=== PATIENT | female | born 1930 | race Caucasian/White ===

== ENCOUNTER 2016-08-17 19:44 | Emergency (ER) | payer MEDICARE, BC ==
[~2016-08-17] VITALS: Ht 165.1 cm; Wt 48.6 kg
[~2016-08-17 19:44] MED LIST: ALBUTEROL1.25 MG/3 IH; ALMACONE 360 M360 ML PO; AMBIEN 10MG10 MG PO; AMBIEN 5MG TABLE5 MG PO; ANTACID 225 MG360 M1 PO; ARIMIDEX1 MG PO; ASPI325T6 PO; BENADRYL ALLERG25 M1 PO; BENADRYL25 M2; BENADRYL25 M2 PO; BIAXIN FILMTAB500 MG PO; BUFFERED ASPIR325 M1 PO; CARDIZEM CD 12120 MG PO; CLEOCIN HCL300 MG PO; COUMADIN 22.5 MG/TAB PO; COUMADIN 3MG3 MG/TAB; COUMADIN 3MG3 MG/TAB PO; COUMADIN 5MG5 MG/TAB; COUMADIN4 MG PO; CYMBALTA 30MG30 MG PO; DARVOCET-N-101 UDTAB PO; DESYREL DIVIDO150 M1 PO; DITROPAN 5MG TAB5 MG PO; DOXYCYCLINE 10100 MG PO; DULCOLAX10 MG RC; ENSURE1 PDR PO; EYE DROPS 0.05%15 ML OP; EYE OINTMENT OU; GAS-X80 MG PO; GENTLE LAXATIVE10 MG RC; INDERAL 10MG10 MG; INDERAL 10MG10 MG PO; IPRATROPIUM BROM3 M1 IH; KEPPRA 500MG500 MG PO; KLOR-CON 1010 MEQ PO; LASIX 20MG TABL20 MG PO; LEVAQUIN 5500 MG/TA1 PO; LIPITOR 10MG10 MG PO; LOPRESSOR 225 MG/TAB PO; MIRALAX PA17 GM/Dose PO; MUCINEX 60600 MG/TA1 PO; MUCINEX1200 MG; MULTIPLE VITAMI1 CAP PO; MYLANTA 150 ML150 M1 PO; NORCO 325 MG-51 TAB PO; PHAZYME PO; SENNA8.6 MG PO; SENOKOT8.6 MG PO; TAMBOCOR 1100 MG/TAB PO; TAMBOCOR50 MG; TAMBOCOR50 MG PO; THERATEARS 15 M15 ML OU; TOPROL XL 25MG25 MG PO; TOPROL XL25 MG PO; TRAZODONE PO; TYLENOL 325MG325 MG PO; UNABLE; VISINE ADVANCED15 ML OP; XANAX .25M0.25 MG/TA PO; XANAX 0.5MG0.5 MG PO; XANAX0.5 MG PO; XARELTO10 MG PO; ZANTAC 150MG T150 MG PO; ZOFRAN 4MG T4 MG/TAB PO; [UNRECOGNIZED DRUG - OTHER]
[2016-08-17 19:53] VITALS: BP 130/49; TEMP 97.2
[2016-08-17] MEDS ORDERED: INDERAL 10MG10 MG PO (21:13)
[2016-08-17 23:27] VITALS: PULSE 63
== END 2016-08-17 23:29 | disposition home or self-care (01) ==
LOC: COL.ER 19:44
DX: S09.90XA Unspecified injury of head, initial encounter (principal); S70.01XA Contusion of right hip, initial encounter; W18.2XXA Fall in (into) shower or empty bathtub, initial encounter; Y93.E1 Activity, personal bathing and showering; Y92.121 Bathroom in nursing home as the place of occurrence of the external cause; M54.2 Cervicalgia; I48.91 Unspecified atrial fibrillation; R40.2362 Coma scale, best motor response, obeys commands, at arrival to emergency department; R40.2142 Coma scale, eyes open, spontaneous, at arrival to emergency department; R40.2252 Coma scale, best verbal response, oriented, at arrival to emergency department; I69.354 Hemiplegia and hemiparesis following cerebral infarction affecting left non-dominant side

== ENCOUNTER → 2017-08-02 | Outpatient (CLI) | payer MEDICARE, BC ==
[2017-08-02 01:06] LABS: COLLECTION METHOD CLEAN CATCH
[2017-08-02 01:13] LABS: PH 6 (5-8); SQUAMOUS EPITHELIAL None Seen /hpf; URINE APPEARANCE Turbid; URINE BACTERIA None Seen /hpf; URINE BILIRUBIN Negative (NEGATIVE); URINE BLOOD 1+ (NEGATIVE); URINE COLOR Amber; URINE GLUCOSE Negative (NEGATIVE); URINE KETONE Negative (NEGATIVE); URINE LEUKOCYTE ESTERASE 3+ (NEGATIVE); URINE NITRATE Negative (NEGATIVE); URINE PROTEIN(semi-quant) 2+ (NEGATIVE); URINE RBC None Seen /hpf
== END ==
LOC: ZCOL.LAB 00:33
PROVIDERS: Internal Medicine
DX: R39.9 Unspecified symptoms and signs involving the genitourinary system (principal)

== ENCOUNTER → 2017-10-16 | Outpatient (CLI) | payer MEDICARE, BC ==
[2017-10-16 17:44] LABS: COLLECTION METHOD CATHETER
[2017-10-16 18:06] LABS: PH 5 (5-8); SQUAMOUS EPITHELIAL None Seen /hpf; URINE APPEARANCE Turbid; URINE BACTERIA None Seen /hpf; URINE BILIRUBIN Negative (NEGATIVE); URINE BLOOD Negative (NEGATIVE); URINE COLOR Yellow; URINE GLUCOSE Negative (NEGATIVE); URINE KETONE Negative (NEGATIVE); URINE LEUKOCYTE ESTERASE 2+ (NEGATIVE); URINE NITRATE Negative (NEGATIVE); URINE PROTEIN(semi-quant) 2+ (NEGATIVE)
== END ==
LOC: ZCOL.LAB 17:37
PROVIDERS: Internal Medicine
DX: Z01.89 Encounter for other specified special examinations (principal)

== ENCOUNTER 2018-11-18 20:54 | Emergency (ER) | payer MEDICARE, BC ==
[2018-11-18 20:55] VITALS: TEMP 97.5
[2018-11-18] MEDS ORDERED: MIRALAX PA17 GM/Dose PO (22:21)
[2018-11-18] MEDS ORDERED: XANAX .25M0.25 MG/TA PO (22:21)
[2018-11-18] MEDS ORDERED: TYLENOL 325MG325 MG PO (22:23)
[2018-11-18] MEDS ORDERED: CYMBALTA 30MG30 MG PO (22:24)
[2018-11-18] MEDS ORDERED: GAS RELIEF 8080 MG PO (22:24)
[2018-11-18] MEDS ORDERED: ASPIRIN 32325 MG/TAB PO (22:25)
[2018-11-18] MEDS ORDERED: ARIMIDEX1 MG PO (22:25)
[2018-11-18] MEDS ORDERED: NORCO 325 MG-51 TAB PO (22:25)
[2018-11-18] MEDS ORDERED: AMPHOJEL SUSPENS1 ML PO (22:27)
[2018-11-18] MEDS ORDERED: KEPPRA 500MG500 MG PO (22:27)
[2018-11-18] MEDS ORDERED: KLOR-CON 1010 MEQ PO (22:28)
[2018-11-18] MEDS ORDERED: ZOFRAN 4MG T4 MG/TAB PO (22:28)
[2018-11-18] MEDS ORDERED: ZANTAC 150MG T150 MG PO (22:28)
[2018-11-18] MEDS ORDERED: VESICARE 5MG5 MG PO (22:29)
[2018-11-18] MEDS ORDERED: MUCINEX 60600 MG/TA1 PO (22:29)
[2018-11-18] MEDS ORDERED: INDERAL 10MG10 MG PO (22:29)
[2018-11-18] MEDS ORDERED: LIPITOR 10MG10 MG PO (22:30)
[2018-11-18] MEDS ORDERED: VISINE A.C. 0.015 ML (22:30)
[2018-11-18] MEDS ORDERED: TOPROL XL 25MG25 MG PO (22:30)
[2018-11-18] MEDS ORDERED: CARDIZEM CD 24240 MG PO (22:30)
[2018-11-18] MEDS ORDERED: HIPREX PO (22:31)
[2018-11-18 22:43] VITALS: BP 114/80; PULSE 53
== END 2018-11-18 23:00 | disposition home or self-care (01) ==
LOC: COL.ER 20:54
DX: S01.81XA Laceration without foreign body of other part of head, initial encounter (principal); M54.2 Cervicalgia; G89.29 Other chronic pain; Z86.73 Personal history of transient ischemic attack (TIA), and cerebral infarction without residual deficits; F03.90 Unspecified dementia, unspecified severity, without behavioral disturbance, psychotic disturbance, mood disturbance, and anxiety; W19.XXXA Unspecified fall, initial encounter; Y92.009 Unspecified place in unspecified non-institutional (private) residence as the place of occurrence of the external cause

== ENCOUNTER 2019-01-24 17:30 | Inpatient (IN) | payer MEDICARE, BC ==
[~2019-01-24] VITALS: Wt 53.3 kg
[~2019-01-24 17:30] MED LIST changes: +AMPHOJEL SUSPENS1 ML PO; +ASPIRIN 32325 MG/TAB PO; +CARDIZEM CD 24240 MG PO; +GAS RELIEF 8080 MG PO; +HIPREX PO; +VESICARE 5MG5 MG PO; +VISINE A.C. 0.015 ML
[2019-01-24 18:09] LABS: BASO # 0.1 (0.0-0.2); BASO % 1.3 % (0.0-2.0); EOS # 0.3 (0.0-0.7); EOS % 3.6 % (0-4.0); GRAN # 6.2 (1.4-6.5); GRAN % 65.6 % (42.2-75.2); HEMATOCRIT 44.8 % (37.0-47.0); HEMOGLOBIN 14.6 g/dl (12.5-16.0); LYMPH # 2.1 (1.2-3.4); LYMPH % 22.8 % (20.0-51.0); MEAN CELL VOLUME 100 fl (80.0-100.0); MEAN CORPUSCULAR HEMOGLOBIN 33 pg (27.0-31.0); MEAN CORPUSCULAR HGB CONC 33 g/dl (33.0-37.0); MEAN PLATELET VOLUME 10.3 fl (7.4-10.4); MONO # 0.6 (0.1-0.6); MONO % 6.3 % (1.7-9.3); PLATELET COUNT 163 K/mm3 (130-400); RED BLOOD COUNT 4.49 M/mm3 (4.10-5.30); REDCELL DISTRIBUTION WIDTH-CV 13.2 % (11.5-14.5)
[2019-01-24 18:14] LABS: COLLECTION METHOD CATHETER
[2019-01-24 18:16] LABS: PROTHROMBIN TIME 11.8 SECONDS (9.7-12.8)
[2019-01-24 18:19] LABS: PARTIAL THROMBOPLASTIN TIME 21.7 SECONDS (26.0-37.0)
[2019-01-24 18:20] LABS: ALANINE AMINOTRANSFERASE 17 U/L (9-52); ALBUMIN 3.8 gm/dL (3.5-5.0); ALKALINE PHOSPHATASE 121 U/L (50-136); ANION GAP 11 mmol/L (7-16); AST,SGOT 22 U/L (15-37); BILIRUBIN,TOTAL 0.7 mg/dL (0.0-1.0); BLOOD UREA NITROGEN 21 mg/dL (7-17); CALCIUM 9.5 mg/dL (8.4-10.2); CARBON DIOXIDE 24 mmol/L (22-30); CHLORIDE 106 mmol/L (98-107); CREATININE, serum 0.69 (0.52-1.25); GLUCOSE 104 mg/dL (74-106); POTASSIUM 4.5 mmol/L (3.4-5.0); SODIUM 141 mmol/L (137-145)
[2019-01-24 18:21] LABS: PH 5 (5-8); SQUAMOUS EPITHELIAL 0-2 /hpf; URINE APPEARANCE Hazy; URINE BACTERIA Rare /hpf; URINE BILIRUBIN Negative (NEGATIVE); URINE BLOOD Negative (NEGATIVE); URINE COLOR Yellow; URINE GLUCOSE Negative (NEGATIVE); URINE KETONE Trace (NEGATIVE); URINE LEUKOCYTE ESTERASE 1+ (NEGATIVE); URINE NITRATE Negative (NEGATIVE); URINE PROTEIN(semi-quant) 1+ (NEGATIVE); URINE RBC 0-2 /hpf; URINE UROBILINOGEN Negative (NEGATIVE)
[2019-01-24 18:34] LABS: TROPONIN-I < 0.012 ng/mL (0.000-0.035)
[2019-01-24 21:42] VITALS: BP 106/84; PULSE 114; TEMP 98
[2019-01-24 23:00] VITALS: BP 106/82; PULSE 125; TEMP 97.4
[2019-01-24 23:01] LABS: HEMOGLOBIN A1C 5.1 %; MAGNESIUM 1.9 mg/dL (1.6-2.3); PHOSPHOROUS 3.7 mg/dL (2.5-4.5)
[2019-01-24 23:07] LABS: LACTIC ACID 1.5 mmol/L (0.4-2.0)
[2019-01-24 23:29] VITALS: BP 106/84; PULSE 114; TEMP 98
[2019-01-24 23:55] LABS: TROPONIN-I < 0.012 ng/mL (0.000-0.035)
[2019-01-24 23:57] VITALS: O2SAT 95; O2SAT 96
[2019-01-24 23:58] VITALS: O2SAT 96
[2019-01-24 23:59] VITALS: O2SAT 95
[2019-01-25] VITALS (704 sets, daily range): BP systolic 99–111; BP diastolic 62–83; PULSE 101–129; TEMP 97.4–98.8; O2SAT 52–100
[2019-01-25] MEDS ORDERED: MYLANTA 150 ML150 M1 PO (02:40)
[2019-01-25] MEDS ORDERED: XANAX .25M0.25 MG/TA PO (02:42)
[2019-01-25] MEDS ORDERED: DETROL LA4 PO (02:47)
[2019-01-25 05:44] LABS: BASO # 0.1 (0.0-0.2); BASO % 1.1 % (0.0-2.0); EOS # 0.2 (0.0-0.7); EOS % 2.4 % (0-4.0); GRAN # 6.2 (1.4-6.5); GRAN % 68.6 % (42.2-75.2); HEMATOCRIT 40.9 % (37.0-47.0); HEMOGLOBIN 13.5 g/dl (12.5-16.0); LYMPH # 1.8 (1.2-3.4); LYMPH % 19.7 % (20.0-51.0); MEAN CELL VOLUME 99 fl (80.0-100.0); MEAN CORPUSCULAR HEMOGLOBIN 33 pg (27.0-31.0); MEAN CORPUSCULAR HGB CONC 33 g/dl (33.0-37.0); MONO # 0.7 (0.1-0.6); MONO % 7.9 % (1.7-9.3); PLATELET COUNT 144 K/mm3 (130-400); RED BLOOD COUNT 4.15 M/mm3 (4.10-5.30); REDCELL DISTRIBUTION WIDTH-CV 13.2 % (11.5-14.5)
[2019-01-25 05:51] LABS: ALBUMIN 3.1 gm/dL (3.5-5.0); BILIRUBIN,TOTAL 0.7 mg/dL (0.0-1.0); CALCIUM 8.8 mg/dL (8.4-10.2); CHOLESTEROL RISK RATIO 4.2; CREATININE, serum 0.57 (0.52-1.25); TOTAL PROTEIN 5.9 gm/dL (6.4-8.2)
[2019-01-26] VITALS (438 sets, daily range): BP systolic 101–121; BP diastolic 67–88; PULSE 97–115; TEMP 97.9–98.5; O2SAT 66–100
[2019-01-26 07:06] LABS: BASO # 0.1 (0.0-0.2); BASO % 1.1 % (0.0-2.0); EOS # 0.2 (0.0-0.7); EOS % 2.4 % (0-4.0); GRAN # 5.8 (1.4-6.5); GRAN % 70.7 % (42.2-75.2); HEMOGLOBIN 11.9 g/dl (12.5-16.0); LYMPH # 1.4 (1.2-3.4); LYMPH % 17.5 % (20.0-51.0); MEAN CELL VOLUME 100 fl (80.0-100.0); MEAN CORPUSCULAR HEMOGLOBIN 33 pg (27.0-31.0); MEAN CORPUSCULAR HGB CONC 33 g/dl (33.0-37.0); MEAN PLATELET VOLUME 10.9 fl (7.4-10.4); MONO # 0.7 (0.1-0.6); MONO % 7.9 % (1.7-9.3); PLATELET COUNT 131 K/mm3 (130-400); RED BLOOD COUNT 3.63 M/mm3 (4.10-5.30); REDCELL DISTRIBUTION WIDTH-CV 13.2 % (11.5-14.5)
[2019-01-26 07:11] LABS: HEMATOCRIT 36.2 % (37.0-47.0)
[2019-01-26 07:25] LABS: CALCIUM 8.5 mg/dL (8.4-10.2); CREATININE, serum 0.53 (0.52-1.25); POTASSIUM 3.6 mmol/L (3.4-5.0)
[2019-01-27 00:06] VITALS: BP 132/85; PULSE 76; TEMP 97.6
[2019-01-27 07:07] LABS: BASO # 0.1 (0.0-0.2); BASO % 0.9 % (0.0-2.0); EOS # 0.1 (0.0-0.7); EOS % 1.3 % (0-4.0); GRAN # 6.7 (1.4-6.5); GRAN % 77.5 % (42.2-75.2); HEMATOCRIT 38.3 % (37.0-47.0); HEMOGLOBIN 12.3 g/dl (12.5-16.0); LYMPH # 1.2 (1.2-3.4); LYMPH % 13.5 % (20.0-51.0); MEAN CELL VOLUME 101 fl (80.0-100.0); MEAN CORPUSCULAR HEMOGLOBIN 33 pg (27.0-31.0); MEAN CORPUSCULAR HGB CONC 32 g/dl (33.0-37.0); MONO # 0.5 (0.1-0.6); MONO % 6.3 % (1.7-9.3); PLATELET COUNT 152 K/mm3 (130-400); RED BLOOD COUNT 3.79 M/mm3 (4.10-5.30); REDCELL DISTRIBUTION WIDTH-CV 13.3 % (11.5-14.5)
[2019-01-27 07:20] LABS: CALCIUM 8.5 mg/dL (8.4-10.2); CREATININE, serum 0.5 (0.52-1.25); MAGNESIUM 1.9 mg/dL (1.6-2.3); POTASSIUM 3.5 mmol/L (3.4-5.0)
[2019-01-27 07:41] VITALS: BP 116/74; PULSE 66; TEMP 98.1
[2019-01-27 11:30] VITALS: BP 116/79; PULSE 104; TEMP 97.8
[2019-01-27 15:29] VITALS: BP 105/78; PULSE 106; TEMP 97.8
[2019-01-27 19:38] VITALS: BP 120/94; PULSE 115; TEMP 98.2
[2019-01-27 23:20] VITALS: BP 109/79; PULSE 95; TEMP 97.6
[2019-01-28] VITALS (7 sets, daily range): BP systolic 105–124; BP diastolic 62–85; PULSE 84–111; TEMP 97.4–98.7
[2019-01-28 11:18] LABS: BASO # 0.1 (0.0-0.2); BASO % 1.1 % (0.0-2.0); EOS # 0.5 (0.0-0.7); EOS % 5.7 % (0-4.0); GRAN # 5.7 (1.4-6.5); GRAN % 66.5 % (42.2-75.2); HEMATOCRIT 43.4 % (37.0-47.0); HEMOGLOBIN 13.9 g/dl (12.5-16.0); LYMPH # 1.7 (1.2-3.4); LYMPH % 20.1 % (20.0-51.0); MEAN CELL VOLUME 101 fl (80.0-100.0); MEAN CORPUSCULAR HEMOGLOBIN 32 pg (27.0-31.0); MEAN CORPUSCULAR HGB CONC 32 g/dl (33.0-37.0); MEAN PLATELET VOLUME 10.6 fl (7.4-10.4); MONO # 0.5 (0.1-0.6); MONO % 6.2 % (1.7-9.3); PLATELET COUNT 158 K/mm3 (130-400); RED BLOOD COUNT 4.31 M/mm3 (4.10-5.30); REDCELL DISTRIBUTION WIDTH-CV 13.3 % (11.5-14.5)
[2019-01-28 11:24] LABS: CALCIUM 8.8 mg/dL (8.4-10.2); CREATININE, serum 0.47 (0.52-1.25); POTASSIUM 3.8 mmol/L (3.4-5.0)
[2019-01-28 13:16] LABS: INR 1.1 (0.8-3.0); PROTHROMBIN TIME 13.1 SECONDS (9.7-12.8)
[2019-01-28 15:14] LABS: PLEURAL FLUID RBC 0 /mm3 (0-0); PLEURAL FLUID WBC 129 /mm3
[2019-01-28 15:16] LABS: PLEURAL FLUID APPEARANCE CLEAR; PLEURAL FLUID COLOR YELLOW
[2019-01-28 15:25] LABS: GLUCOSE,PLEURAL FLUID 96 mg/dL; TOTAL PROTEIN,PLEURAL FLUID 2.3 gm/dL
[2019-01-29 03:52] VITALS: BP 100/50; PULSE 88; TEMP 98
[2019-01-29 05:44] VITALS: BP 107/63
[2019-01-29 07:59] VITALS: BP 125/85; PULSE 100; TEMP 97.6
[2019-01-29] MEDS ORDERED: CARDIZEM 60MG T60 MG PO ×3 (09:02→15:44)
[2019-01-29] MEDS ORDERED: LOPRESSOR 225 MG/TAB PO (09:02)
[2019-01-29 10:11] LABS: BASO # 0.1 (0.0-0.2); BASO % 1.1 % (0.0-2.0); EOS # 0.5 (0.0-0.7); EOS % 5.4 % (0-4.0); GRAN % 67.6 % (42.2-75.2); HEMATOCRIT 42.4 % (37.0-47.0); HEMOGLOBIN 13.9 g/dl (12.5-16.0); LYMPH # 1.7 (1.2-3.4); LYMPH % 18.8 % (20.0-51.0); MEAN CELL VOLUME 101 fl (80.0-100.0); MEAN CORPUSCULAR HEMOGLOBIN 33 pg (27.0-31.0); MEAN CORPUSCULAR HGB CONC 33 g/dl (33.0-37.0); MEAN PLATELET VOLUME 10.4 fl (7.4-10.4); MONO # 0.6 (0.1-0.6); MONO % 6.8 % (1.7-9.3); PLATELET COUNT 150 K/mm3 (130-400); REDCELL DISTRIBUTION WIDTH-CV 13.3 % (11.5-14.5)
[2019-01-29 10:23] LABS: CALCIUM 8.8 mg/dL (8.4-10.2); CREATININE, serum 0.47 (0.52-1.25); POTASSIUM 3.9 mmol/L (3.4-5.0)
== END 2019-01-29 12:51 | disposition home health service (06) | DRG 65 ==
LOC: COL.ER 17:30 → ICU 20:36 → MEDICAL 01-26 14:01
PROVIDERS: Emergency Medicine; Nurse Practitioner Family; Physician Assistant; ADMIT Internal Medicine
PROC: 0W993ZZ Drainage of Right Pleural Cavity, Percutaneous Approach (ICD-10-PCS; principal; 2019-01-28)
DX: I63.9 Cerebral infarction, unspecified (principal); I69.254 Hemiplegia and hemiparesis following other nontraumatic intracranial hemorrhage affecting left non-dominant side; N39.0 Urinary tract infection, site not specified; J90 Pleural effusion, not elsewhere classified; E44.0 Moderate protein-calorie malnutrition; Z68.1 Body mass index [BMI] 19.9 or less, adult; I10 Essential (primary) hypertension; R47.01 Aphasia; I48.2 Chronic atrial fibrillation; G40.909 Epilepsy, unspecified, not intractable, without status epilepticus; R53.81 Other malaise; Z66 Do not resuscitate; M48.061 Spinal stenosis, lumbar region without neurogenic claudication; M62.422 Contracture of muscle, left upper arm; H35.30 Unspecified macular degeneration; I34.0 Nonrheumatic mitral (valve) insufficiency; H54.8 Legal blindness, as defined in USA; F32.9 Major depressive disorder, single episode, unspecified; Z90.710 Acquired absence of both cervix and uterus; Z92.3 Personal history of irradiation; Z85.3 Personal history of malignant neoplasm of breast; Z91.81 History of falling; Z96.641 Presence of right artificial hip joint; Z88.0 Allergy status to penicillin; Z88.1 Allergy status to other antibiotic agents; Z88.2 Allergy status to sulfonamides; Z88.5 Allergy status to narcotic agent
CPT/HCPCS: 99223-AI; 99232-AI; 99233-AI; 99239; A4216; A9585; J0456; J0692; J0696; J1953; J2405; J7030; J7050; Q9967

== ENCOUNTER 2019-02-01 08:43 | Observation (INO) | payer MEDICARE, BC ==
[~2019-02-01] VITALS: Ht 165.1 cm; Wt 50.0 kg
[~2019-02-01 08:43] MED LIST changes: +CARDIZEM 60MG T60 MG PO; +DETROL LA4 PO
[2019-02-01 09:37] LABS: BASO # 0.1 (0.0-0.2); EOS # 0.5 (0.0-0.7); EOS % 5.8 % (0-4.0); GRAN # 6.6 (1.4-6.5); GRAN % 71.9 % (42.2-75.2); HEMATOCRIT 43.2 % (37.0-47.0); HEMOGLOBIN 14.1 g/dl (12.5-16.0); LYMPH # 1.4 (1.2-3.4); LYMPH % 14.9 % (20.0-51.0); MEAN CELL VOLUME 99 fl (80.0-100.0); MEAN CORPUSCULAR HEMOGLOBIN 32 pg (27.0-31.0); MEAN CORPUSCULAR HGB CONC 33 g/dl (33.0-37.0); MEAN PLATELET VOLUME 10.6 fl (7.4-10.4); MONO # 0.6 (0.1-0.6); PLATELET COUNT 180 K/mm3 (130-400); RED BLOOD COUNT 4.35 M/mm3 (4.10-5.30); REDCELL DISTRIBUTION WIDTH-CV 13.2 % (11.5-14.5)
[2019-02-01 09:39] LABS: INR 1.1 (0.8-3.0); PROTHROMBIN TIME 13.2 SECONDS (9.7-12.8)
[2019-02-01 09:44] LABS: ALBUMIN 3.3 gm/dL (3.5-5.0); BILIRUBIN,TOTAL 0.8 mg/dL (0.0-1.0); CALCIUM 8.9 mg/dL (8.4-10.2); CREATININE, serum 0.56 (0.52-1.25); TOTAL PROTEIN 6.1 gm/dL (6.4-8.2)
[2019-02-01 10:11] LABS: COLLECTION METHOD CATHETER
--- NOTE | 2019-02-01 10:46 | NUR ---
JOHN met with patient and to discuss placement. Patient was recently in the hospital and had screened for SNF. She decided she would rather go back to [facility] where she receives full care. Patient is wheelchair bound and also gets home health [facility]. JOHN called richelle at [facility] who reports they are meeting her needs and can continue to do so. She reports they provide all of her care needed. JOHN spoke with patient who does not want to go skilled and her feels she gets the care she needs at [facility]. JOHN informed nurse that patient would like to return to [place].
[2019-02-01 11:02] LABS: PH 5 (5-8); URINE APPEARANCE Cloudy; URINE BACTERIA Moderate /hpf; URINE BILIRUBIN Negative (NEGATIVE); URINE BLOOD 1+ (NEGATIVE); URINE COLOR Yellow; URINE GLUCOSE Negative (NEGATIVE); URINE KETONE Negative (NEGATIVE); URINE LEUKOCYTE ESTERASE 2+ (NEGATIVE); URINE NITRATE Negative (NEGATIVE); URINE PROTEIN(semi-quant) Negative (NEGATIVE); URINE UROBILINOGEN Negative (NEGATIVE)
[2019-02-01] MEDS ORDERED: CARDIZEM 60MG T60 MG PO (12:31)
[2019-02-01 15:15] VITALS: BP 102/62; PULSE 105; TEMP 98.5
--- NOTE | 2019-02-01 16:25 | NUR ---
PT BACK TO ROOM AT THIS TIME. CT COMPLETE, VENKATA PAGAN SCHEDULED FOR TOMMORROW.
[2019-02-01 16:57] VITALS: BP 123/81; PULSE 108; TEMP 98.7
--- NOTE | 2019-02-01 18:57 | NUR ---
report to Kandy MANCINI
[2019-02-01 19:59] VITALS: BP 118/79; PULSE 106; TEMP 98.4
--- NOTE | 2019-02-01 20:30 | NUR ---
Initial shift assessment done- alert/partially oriented- concerned about her medications-reassurance given,, tele on, VSS, bed alarm on-
[2019-02-01 23:39] VITALS: BP 116/66; PULSE 91; TEMP 98
[2019-02-02 04:55] VITALS: BP 103/64; PULSE 90; TEMP 99.1
--- NOTE | 2019-02-02 05:01 | NUR ---
Quiet night- sleeping well, VSS, Tele on-afib rate 80-110, SCD's on at this time, EEG ordered for today, SEizure Precautions on at this time, Incontinent of urine during the night- care given as needed
[2019-02-02 06:54] VITALS: BP 100/66; PULSE 86; TEMP 98.4
[2019-02-02 07:19] LABS: BASO # 0.1 (0.0-0.2); BASO % 0.9 % (0.0-2.0); EOS # 0.5 (0.0-0.7); EOS % 6.2 % (0-4.0); GRAN # 5.4 (1.4-6.5); GRAN % 66.4 % (42.2-75.2); LYMPH # 1.5 (1.2-3.4); LYMPH % 18.2 % (20.0-51.0); MEAN CELL VOLUME 100 fl (80.0-100.0); MEAN CORPUSCULAR HEMOGLOBIN 33 pg (27.0-31.0); MEAN CORPUSCULAR HGB CONC 33 g/dl (33.0-37.0); MEAN PLATELET VOLUME 10.6 fl (7.4-10.4); MONO # 0.6 (0.1-0.6); MONO % 7.8 % (1.7-9.3); PLATELET COUNT 166 K/mm3 (130-400); REDCELL DISTRIBUTION WIDTH-CV 13.2 % (11.5-14.5)
[2019-02-02 07:29] LABS: CALCIUM 8.5 mg/dL (8.4-10.2); CREATININE, serum 0.56 (0.52-1.25); POTASSIUM 3.5 mmol/L (3.4-5.0)
--- NOTE | 2019-02-02 11:00 | NUR ---
HOSPITALIST TEAM ROUNDING. SEE ORDERS.
--- NOTE | 2019-02-02 11:12 | NUR ---
PATIENT GOING DOWN FOR THORO. GAVE PRN TYLENOL FOR PAIN BEFORE LEAVING THE FLOOR AND PLACE A LIDO PATCH TO RIGHT LOWER BACK.
[2019-02-02 12:50] LABS: PLEURAL FLUID RBC 0 /mm3 (0-0); PLEURAL FLUID WBC 253 /mm3
[2019-02-02 12:59] LABS: GLUCOSE,PLEURAL FLUID 72 mg/dL
[2019-02-02 13:06] LABS: TOTAL PROTEIN,PLEURAL FLUID < 2.0 gm/dL
[2019-02-02 13:09] LABS: PLEURAL FLUID APPEARANCE CLEAR; PLEURAL FLUID COLOR YELLOW
--- NOTE | 2019-02-02 14:58 | NUR ---
SW attended clinical rounds. Patient lives at [facility] with her . Patient's PCP is Dr Garcia and she obtains prescriptions from [facility]. [facility] has [facility] for PT/OT/ST. Patient uses a wheelchair for mobility. Patient has advanced directive in the EMR. SW will continue to follow to ensure a safe discharge plan.
[2019-02-02 15:59] VITALS: BP 117/70; PULSE 97; TEMP 97.8
[2019-02-02 19:31] VITALS: BP 101/66; PULSE 106; TEMP 98.3
--- NOTE | 2019-02-02 22:00 | NUR ---
Shift assessment complete. Patient in bed, sleeping, arouses to name. Oriented to person only. States, pain in right shoulder, unable to rate. Scheduled tylenol given. Contracture noted in left hand. Buttocks/coccyx reddened, unable to jany. Groin also very red, rash-like. Brief changed, and loosly attached. Turned to left side with pillows. SCD's applied. Denies further needs. Will continue to monitor.
[2019-02-02 23:08] VITALS: BP 102/72; PULSE 99; TEMP 97.9
--- NOTE | 2019-02-03 02:30 | NUR ---
Patient repositioned in bed, with pillows. Brief removed d/t rash in groin, and stage 1 on buttocks. Will continue to monitor.
[2019-02-03 04:31] VITALS: BP 106/63; PULSE 77; TEMP 97.6
--- NOTE | 2019-02-03 05:58 | NUR ---
Patient in bed, resting. Denies pain. Denies further needs at this time. Will continue to monitor.
[2019-02-03 07:07] VITALS: BP 101/67; PULSE 89; TEMP 97.5
--- NOTE | 2019-02-03 07:15 | NUR ---
Report received from Yolanda Rivera. Pt in bed resting with eyes closed, will continue to monitor.
[2019-02-03 07:17] LABS: BASO # 0.1 (0.0-0.2); BASO % 0.6 % (0.0-2.0); EOS # 0.6 (0.0-0.7); EOS % 6.9 % (0-4.0); GRAN # 6.1 (1.4-6.5); GRAN % 66.9 % (42.2-75.2); HEMATOCRIT 39.3 % (37.0-47.0); LYMPH # 1.5 (1.2-3.4); MEAN CELL VOLUME 100 fl (80.0-100.0); MEAN CORPUSCULAR HEMOGLOBIN 33 pg (27.0-31.0); MEAN CORPUSCULAR HGB CONC 33 g/dl (33.0-37.0); MEAN PLATELET VOLUME 11.8 fl (7.4-10.4); MONO # 0.8 (0.1-0.6); MONO % 8.3 % (1.7-9.3); PLATELET COUNT 137 K/mm3 (130-400); RED BLOOD COUNT 3.95 M/mm3 (4.10-5.30); REDCELL DISTRIBUTION WIDTH-CV 13.3 % (11.5-14.5)
[2019-02-03 08:02] LABS: ALBUMIN 2.6 gm/dL (3.5-5.0); BILIRUBIN,TOTAL 0.4 mg/dL (0.0-1.0); CALCIUM 8.5 mg/dL (8.4-10.2); CREATININE, serum 0.61 (0.52-1.25); POTASSIUM 3.7 mmol/L (3.4-5.0); TOTAL PROTEIN 5.1 gm/dL (6.4-8.2)
--- NOTE | 2019-02-03 10:16 | NUR ---
Assessement charted. Assisted pt with eating breakfast and took all am pills wlel. Refused Keppra. Gave very good bed bath, L hand contracted and was very odorous, cleaned well. BLE very scaley feet and changed socks and cleaned well. Sacrem red, groin red, barrier cream applied and turning q2h. Pt was incontinent of urine, changed to clean brief. C/o pain to R ankle, floated ankle. Denies other needs, will continue to monitor.
[2019-02-03 11:07] VITALS: BP 108/56; PULSE 85; TEMP 97.2
[2019-02-03 16:06] VITALS: BP 97/62; PULSE 64; TEMP 98.6
--- NOTE | 2019-02-03 16:45 | NUR ---
SW informed patient has questions about AL vs SNF. SW met with patient about this. Patient reported that she would like to return to [facility] upon discharge as long as the doctor will agree to that plan. SW will follow up with patient and tomorrow.
--- NOTE | 2019-02-03 17:44 | NUR ---
Pt has done well today. Up to chair with therapy. Resting quietly, has eaten well with asssistance today. Denies pain. Will give bedside shift report to nightshift report who will resume care.
--- NOTE | 2019-02-03 20:20 | NUR ---
PT IS RESTING IN CHAIR AT THIS TIME A+OX4 BUT CONFUSED AT TIMES. REPORTS NO PAIN AT THIS TIME. MOVED PT TO BED. TURNING Q2H IN PLACE. IV FLUSHES WELL, NO REDNESS, NO SWELLING. TELE ON. HEELS FLOATED. PT BRIEF DRY AT THIS TIME. WILL ASSESS SACREAL REGION WHEN CHANGING. PT ATE 25% OF DINNER. VVS. NO NEEEDS AT THIS TIME. CALL LIGHT IN REACH. BED ALARM ON.
[2019-02-03 20:30] VITALS: BP 104/64; PULSE 94; TEMP 98.2
[2019-02-03 23:05] VITALS: BP 100/61; PULSE 103; TEMP 98
--- NOTE | 2019-02-04 02:54 | NUR ---
PT INCONTINENT OF URINE AT THIS TIME, BRIEF CAHNGED, EMERSON CARE PROVIDED. SACREAL REGION RED. GROIN RED. NO OTHER NEEDS AT THIS TIME. TURNING Q2H. NO PAIN AT THIS TIME
[2019-02-04 04:16] VITALS: BP 110/62; PULSE 93; TEMP 97.7
--- NOTE | 2019-02-04 05:17 | NUR ---
pt had an uneventful night. reports pain in left shoulder- prn pain meds given. pt apirated on milk at 0500- kept HOB elevated for 30min after, VSS. reports no soa. turning Q2H. sacareal region is red, groin region is red and escoriated. slight edema in bilat lower extremities noted. pulses felt. neuro checks unchanged- left arm has minimal movement. bilat feet move on bed, right arm is weak. pt incontinent, brief an linens changed as needed- monitoring. no needs at this time. call light in reach. bed alarm on. fall precautions in place.
[2019-02-04 07:23] LABS: BASO # 0.1 (0.0-0.2); BASO % 0.6 % (0.0-2.0); EOS # 0.6 (0.0-0.7); EOS % 7.4 % (0-4.0); GRAN # 5.3 (1.4-6.5); GRAN % 64.4 % (42.2-75.2); HEMATOCRIT 40.7 % (37.0-47.0); HEMOGLOBIN 13.3 g/dl (12.5-16.0); LYMPH # 1.6 (1.2-3.4); LYMPH % 18.8 % (20.0-51.0); MEAN CELL VOLUME 99 fl (80.0-100.0); MEAN CORPUSCULAR HEMOGLOBIN 32 pg (27.0-31.0); MEAN CORPUSCULAR HGB CONC 33 g/dl (33.0-37.0); MEAN PLATELET VOLUME 10.6 fl (7.4-10.4); MONO # 0.7 (0.1-0.6); MONO % 8.6 % (1.7-9.3); PLATELET COUNT 171 K/mm3 (130-400); REDCELL DISTRIBUTION WIDTH-CV 13.3 % (11.5-14.5)
--- NOTE | 2019-02-04 07:24 | NUR ---
REPORT GIVEN TO RADHA MANCINI
[2019-02-04 07:44] LABS: CALCIUM 8.3 mg/dL (8.4-10.2); CREATININE, serum 0.51 (0.52-1.25); POTASSIUM 3.5 mmol/L (3.4-5.0)
[2019-02-04 07:54] VITALS: BP 99/77; PULSE 100; TEMP 97.6
--- NOTE | 2019-02-04 09:11 | NUR ---
Assessment completed, alert/ disoriented, she is confused but pleasant and cooperative, she denies pain, we have given her a bed bath and provided oral hygiene at this time as well, she is sititng up in bed and has taken her PO meds without any difficulty, ST is here to eval her at this time, heart Iregular/ A.fib on tele, lungs CTA/ diminished in lowe lobes, Incontineunt cares done/ no skin breakdown noted, discharge planning for SNF vs. LTC
--- NOTE | 2019-02-04 10:36 | NUR ---
Initial visit; Patient thanked [employer] Specialist for visiting and offering comfort and prayer this morning.
[2019-02-04] MEDS ORDERED: KEPPRA750 MG PO (11:45)
--- NOTE | 2019-02-04 13:19 | NUR ---
SW attended clinical rounds. Patient and family are not interested in moving patient to a SNF and would prefer to return to [facility] with [facility] for nursing, PT, OT, and speech. SW presented IM to patient and family. Patient's signed and did not want a copy. JOHN arranged transportation with [facility]. JOHN faxed discharge orders to both [facility] and [facility].
--- NOTE | 2019-02-04 14:43 | NUR ---
Patient is transferring back to [facility], IV removed, she is leaving with [facility] transportation personel at this time
== END 2019-02-04 16:20 ==
LOC: COL.ER 08:43 → MEDICAL 10:39 → COL.ER 10:39 → MEDICAL 10:39
PROVIDERS: Family Medicine; Physician Assistant; ADMIT Family Medicine
DX: J90 Pleural effusion, not elsewhere classified (principal); N39.0 Urinary tract infection, site not specified; I69.854 Hemiplegia and hemiparesis following other cerebrovascular disease affecting left non-dominant side; I48.2 Chronic atrial fibrillation; I10 Essential (primary) hypertension; N32.81 Overactive bladder; Z85.3 Personal history of malignant neoplasm of breast; F32.9 Major depressive disorder, single episode, unspecified; H35.30 Unspecified macular degeneration; R53.81 Other malaise; Z79.82 Long term (current) use of aspirin; I34.1 Nonrheumatic mitral (valve) prolapse; Z96.641 Presence of right artificial hip joint; F41.9 Anxiety disorder, unspecified; Z90.710 Acquired absence of both cervix and uterus; Z82.3 Family history of stroke; Z82.49 Family history of ischemic heart disease and other diseases of the circulatory system; Z88.1 Allergy status to other antibiotic agents; Z88.2 Allergy status to sulfonamides; Z88.0 Allergy status to penicillin; Z88.5 Allergy status to narcotic agent; Z88.7 Allergy status to serum and vaccine; Z88.3 Allergy status to other anti-infective agents; Z91.048 Other nonmedicinal substance allergy status; Z90.10 Acquired absence of unspecified breast and nipple
CPT/HCPCS: 99222-AI; 99231-AI; 99233-AI; A4216; G0378; G0379; J0696; J1953; Q9967